=== PATIENT | female | born 1970 | race Two or more races ===

== ENCOUNTER 2019-01-16 07:53 | Emergency (ER) | payer MEDICAID ==
[~2019-01-16] VITALS: Ht 165.1 cm; Wt 73.2 kg
[~2019-01-16 07:53] MED LIST: HYDR12.517 PO
--- NOTE | 2019-01-16 09:53 | NUR ---
PT WALKED BACK FROM LOBBY TO ROOM. STEADY UPON AMBULATION TO ROOM.
[2019-01-16 10:44] VITALS: BP 148/99
== END 2019-01-16 10:46 | disposition home or self-care (01) ==
LOC: ED 10:37
DX: M75.31 Calcific tendinitis of right shoulder (principal); I10 Essential (primary) hypertension; F17.200 Nicotine dependence, unspecified, uncomplicated
CPT/HCPCS: 99283

== ENCOUNTER 2019-01-22 09:00 | Emergency (ER) | payer SELFPAY ==
[~2019-01-22] VITALS: Ht 165.1 cm; Wt 74.9 kg
[2019-01-22 09:07] VITALS: BP 173/97
== END 2019-01-22 09:25 | disposition home or self-care (01) ==
LOC: ED 09:18
DX: M25.511 Pain in right shoulder (principal); I10 Essential (primary) hypertension
CPT/HCPCS: 99283